=== PATIENT | male | born 1990 | race Hispanic/Latino ===

== ENCOUNTER 2017-12-22 23:12 | Emergency (ER) | payer SELFPAY ==
[2017-12-23] MEDS ORDERED: BOOSTRIX IM ONE (01:21)
[2017-12-23] MEDS ORDERED: TYLENOL PO ONE (01:22)
[2017-12-23 01:39] LABS: Basophils # (Auto) 0.1 K/mm3 (0.0-0.1); Basophils % (Auto) 0.4 % (0.0-1.8); Eosinophils % (Auto) 0.1 % (0.0-4.3); Hematocrit 44.2 % (35.5-45.6); Hemoglobin 14.9 gm/dl (11.8-15.2); Lymphocytes # (Auto) 1.8 K/mm3 (1.2-5.4); Lymphocytes % (Auto) 12.6 % (13.4-35.0); Mean Corpuscular HGB Conc 34 % (32-34); Mean Corpuscular Hemoglobin 32 pg (28-32); Mean Corpuscular Volume 95 fl (84-94); Monocytes # (Auto) 1.5 K/mm3 (0.0-0.8); Monocytes % (Auto) 10.4 % (0.0-7.3); Platelet Count 339 K/mm3 (140-440); Red Blood Count 4.63 M/mm3 (3.65-5.03); Red Cell Distribution Width 14.8 % (13.2-15.2)
[2017-12-23 01:56] LABS: Alanine Aminotransferase 72 units/L (7-56); Albumin 4.2 g/dL (3.9-5); BUN/Creatinine Ratio 15; Blood Urea Nitrogen 16 mg/dL (9-20); Calcium 9.1 mg/dL (8.4-10.2); Hemolysis Index 2
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
[2017-12-23 03:15] VITALS: BP 102/52
[2017-12-23] MEDS ORDERED: TRIPLE ANTIBIOTIC TP ONE (03:17)
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
== END 2017-12-23 04:16 | disposition other institution (70) ==
LOC: ED 23:12
DX: S09.90XA Unspecified injury of head, initial encounter (principal); S00.03XA Contusion of scalp, initial encounter; S60.221A Contusion of right hand, initial encounter; F20.9 Schizophrenia, unspecified; W22.01XA Walked into wall, initial encounter; Y93.89 Activity, other specified; Y99.8 Other external cause status; Y92.89 Other specified places as the place of occurrence of the external cause
CPT/HCPCS: 36415; 70450; 72125; 73130; 80053; 85025; 90471; 90715; 99285; G0480; 80320; A6250